=== PATIENT | male | born 1945 | race Two or more races ===

== ENCOUNTER 2023-01-20 12:59 | Inpatient (IN) | payer MEDICAID, OTHER ==
[~2023-01-20] VITALS: Ht 180.3 cm; Wt 86.0 kg
[2023-01-20 14:03] LABS: Basophils # (auto) 0 10 ^3/uL (0-0.2); Basophils % (auto) 0.2 % (0.0-2.0); Eosinophils # (auto) 0.1 10 ^3/uL (0-0.8); Eosinophils % (auto) 0.6 % (0.0-7.0); Hematocrit 43.4 % (41.0-53.0); Hemoglobin 14.8 g/dL (13.5-17.5); Lymphocytes # (auto) 2.1 10 ^3/uL (0.4-5.4); Lymphocytes % (auto) 23.7 % (10.0-50.0); Mean Corpuscular Hemoglobin 32.3 pg (28.0-32.0); Mean Corpuscular Hgb Conc. 34.1 g/dL (32.0-36.0); Mean Corpuscular Volume 94.9 fL (80.0-100.0); Monocytes # (auto) 0.6 10 ^3/uL (0-1.3); Monocytes % (auto) 6.5 % (0.0-12.0); Nucleated Red Blood Cells % 0.1 %; Red Blood Cells 4.58 10^6/uL (4.5-5.90); White Blood Cell 8.7 10^3/uL (4.4-10.8)
[2023-01-20 14:23] LABS: Albumin 2.4 g/dL (3.4-5.0); BUN/Creatinine Ratio 18.8; Calcium 8.3 mg/dL (8.5-10.1)
[2023-01-20 14:35] LABS: Bilirubin, Total 21.8 mg/dL (0.2-1.0); Total Protein 6.5 g/dL (6.4-8.2)
[2023-01-20 14:36] LABS: Urine Bacteria FEW /hpf (None Seen); Urine Blood TRACE /uL (Negative); Urine Hyaline Cast FEW /lpf (0 - 2); Urine Mucus FEW (None Seen); Urine Specific Gravity 1.012 (1.001-1.035); Urine WBC 6 /hpf (0 - 3)
[2023-01-20] MEDS ORDERED: ONDANSETRON HCL 4 MG/2 ML VIAL IV PRN (21:00)
[2023-01-20 22:58] LABS: INR 2.38 (0.9-1.15); Partial Thromboplastin Time 36.6 sec (24.6-33.4)
[2023-01-21] MEDS: SODIUM CHLORIDE 0.9% 1,000 ML IV SCH ×2 (03:45→14:45)
[2023-01-21 06:46] LABS: Hematocrit 37.8 % (41.0-53.0); Hemoglobin 13.5 g/dL (13.5-17.5); Mean Corpuscular Hemoglobin 33.5 pg (28.0-32.0); Mean Corpuscular Hgb Conc. 35.7 g/dL (32.0-36.0); Red Blood Cells 4.03 10^6/uL (4.5-5.90); Red Cell Distribution Width 14.8 % (11.8-14.3); White Blood Cell 6.7 10^3/uL (4.4-10.8)
[2023-01-21 07:04] LABS: Albumin 2.2 g/dL (3.4-5.0); Calcium 7.9 mg/dL (8.5-10.1); Potassium 3.7 mmol/L (3.5-5.1)
[2023-01-21 07:08] LABS: BUN/Creatinine Ratio 18.6; Bilirubin, Total 19.7 mg/dL (0.2-1.0)
[2023-01-21 07:31] LABS: Band Neutrophils % (manual) 0; Basophils % (manual) 0 (0.0-2.0); Blast Cells 0; Metamyelocytes % 0; Myelocytes % 0; Promyelocytes % 0; Reactive Lymphocytes 0
[2023-01-21 09:23] LABS: Eosinophils % (manual) 1 (0-7); Lymphocytes % (manual) 17 (10.0-50.0); Monocytes % (manual) 6 (0-12)
[2023-01-21] MEDS: PANTOPRAZOLE 40 MG TAB PO SCH (10:44)
[2023-01-21 17:17] VITALS: BP 131/99
[2023-01-21 22:00] VITALS: BP 149/91
[2023-01-22 05:00] VITALS: BP 129/86
[2023-01-22] MEDS: SODIUM CHLORIDE 0.9% 1,000 ML IV SCH ×2 (05:13→16:46)
[2023-01-22 08:00] VITALS: BP 145/88
[2023-01-22] MEDS: PANTOPRAZOLE 40 MG TAB PO SCH (10:28)
[2023-01-22 12:00] VITALS: BP 137/83
[2023-01-22 16:00] VITALS: BP 141/95
[2023-01-22 20:00] VITALS: BP 136/83
[2023-01-22 22:00] VITALS: BP 136/83
[2023-01-23] MEDS: SODIUM CHLORIDE 0.9% 1,000 ML IV SCH ×2 (03:58→18:45)
[2023-01-23 05:00] VITALS: BP 120/79
[2023-01-23 08:00] VITALS: BP 103/53
[2023-01-23 08:10] VITALS: BP 103/53
[2023-01-23] MEDS: PANTOPRAZOLE 40 MG TAB PO SCH (10:24)
[2023-01-23 11:47] LABS: Hepatitis A Ab IgM Negative
[2023-01-23 11:48] LABS: Hepatitis B Core IgM Negative; Hepatitis C Antibody Negative (Negative)
[2023-01-23 12:00] VITALS: BP 133/92
[2023-01-23 16:00] VITALS: BP 106/57
[2023-01-23 22:00] VITALS: BP 121/77
[2023-01-24 05:00] VITALS: BP 124/86
[2023-01-24] MEDS: SODIUM CHLORIDE 0.9% 1,000 ML IV SCH ×2 (05:32→17:45)
[2023-01-24 09:00] VITALS: BP 124/79
[2023-01-24] MEDS: PANTOPRAZOLE 40 MG TAB PO SCH (10:47)
[2023-01-24 13:00] VITALS: BP 132/83
[2023-01-24 17:00] VITALS: BP 136/78
[2023-01-24 22:00] VITALS: BP 139/78
[2023-01-25] MEDS: SODIUM CHLORIDE 0.9% 1,000 ML IV SCH ×2 (00:15→13:00)
[2023-01-25 05:00] VITALS: BP 102/61
[2023-01-25 09:00] VITALS: BP 111/62
[2023-01-25] MEDS: PANTOPRAZOLE 40 MG TAB PO SCH (09:01)
[2023-01-25 12:17] LABS: Albumin 2.1 g/dL (3.4-5.0); Basophils # (auto) 0 10 ^3/uL (0-0.2); Basophils % (auto) 0.1 % (0.0-2.0); Calcium 7.7 mg/dL (8.5-10.1); Eosinophils # (auto) 0.1 10 ^3/uL (0-0.8); Eosinophils % (auto) 1.1 % (0.0-7.0); Hematocrit 39.3 % (41.0-53.0); Hemoglobin 13.4 g/dL (13.5-17.5); Lymphocytes # (auto) 1.1 10 ^3/uL (0.4-5.4); Lymphocytes % (auto) 20.6 % (10.0-50.0); Mean Corpuscular Hemoglobin 32.6 pg (28.0-32.0); Mean Corpuscular Hgb Conc. 34.2 g/dL (32.0-36.0); Mean Corpuscular Volume 95.3 fL (80.0-100.0); Monocytes # (auto) 0.4 10 ^3/uL (0-1.3); Monocytes % (auto) 7.6 % (0.0-12.0); Neutrophils # (auto) 3.7 10 ^3/uL (1.6-8.6); Neutrophils % (auto) 70.6 % (37.0-80.0); Potassium 3.8 mmol/L (3.5-5.1); Red Blood Cells 4.12 10^6/uL (4.5-5.90); Red Cell Distribution Width 15.2 % (11.8-14.3); White Blood Cell 5.3 10^3/uL (4.4-10.8)
[2023-01-25 12:20] LABS: BUN/Creatinine Ratio 23.5; Bilirubin, Total 15.2 mg/dL (0.2-1.0); Total Protein 5.9 g/dL (6.4-8.2)
[2023-01-25 13:00] VITALS: BP 154/89
[2023-01-25 17:00] VITALS: BP 136/79
[2023-01-25 22:00] VITALS: BP 127/81
[2023-01-26] MEDS: SODIUM CHLORIDE 0.9% 1,000 ML IV SCH (01:21)
[2023-01-26 05:00] VITALS: BP 119/78
[2023-01-26 06:25] LABS: Basophils # (auto) 0 10 ^3/uL (0-0.2); Basophils % (auto) 0.3 % (0.0-2.0); Eosinophils # (auto) 0.1 10 ^3/uL (0-0.8); Eosinophils % (auto) 1.5 % (0.0-7.0); Hematocrit 36.3 % (41.0-53.0); Hemoglobin 12.8 g/dL (13.5-17.5); Lymphocytes # (auto) 1.2 10 ^3/uL (0.4-5.4); Lymphocytes % (auto) 25.5 % (10.0-50.0); Mean Corpuscular Hgb Conc. 35.3 g/dL (32.0-36.0); Mean Corpuscular Volume 93.4 fL (80.0-100.0); Monocytes # (auto) 0.4 10 ^3/uL (0-1.3); Monocytes % (auto) 8.9 % (0.0-12.0); Neutrophils % (auto) 63.8 % (37.0-80.0); Nucleated Red Blood Cells % 0.1 %; Red Blood Cells 3.89 10^6/uL (4.5-5.90); Red Cell Distribution Width 14.9 % (11.8-14.3); White Blood Cell 4.6 10^3/uL (4.4-10.8)
[2023-01-26 07:14] LABS: Albumin 1.9 g/dL (3.4-5.0); BUN/Creatinine Ratio 23.4; Bilirubin, Total 13.6 mg/dL (0.2-1.0); Calcium 7.3 mg/dL (8.5-10.1); Potassium 3.5 mmol/L (3.5-5.1); Total Protein 5.9 g/dL (6.4-8.2)
[2023-01-26 09:00] VITALS: BP 131/74
[2023-01-26] MEDS: PANTOPRAZOLE 40 MG TAB PO SCH (09:05)
[2023-01-26 11:53] LABS: INR 1.74 (0.9-1.15)
[2023-01-26 12:56] VITALS: BP 128/76
[2023-01-26 17:00] VITALS: BP 148/89
[2023-01-26 20:00] VITALS: BP 126/83
[2023-01-26 22:00] VITALS: BP 126/83
[2023-01-27 05:00] VITALS: BP 115/75
[2023-01-27 06:23] LABS: Basophils # (auto) 0 10 ^3/uL (0-0.2); Basophils % (auto) 0.3 % (0.0-2.0); Eosinophils # (auto) 0.1 10 ^3/uL (0-0.8); Hematocrit 36.2 % (41.0-53.0); Hemoglobin 12.6 g/dL (13.5-17.5); Lymphocytes # (auto) 1.2 10 ^3/uL (0.4-5.4); Lymphocytes % (auto) 20.6 % (10.0-50.0); Mean Corpuscular Hemoglobin 32.8 pg (28.0-32.0); Mean Corpuscular Hgb Conc. 34.7 g/dL (32.0-36.0); Mean Corpuscular Volume 94.4 fL (80.0-100.0); Monocytes # (auto) 0.6 10 ^3/uL (0-1.3); Neutrophils # (auto) 3.8 10 ^3/uL (1.6-8.6); Neutrophils % (auto) 67.1 % (37.0-80.0); Nucleated Red Blood Cells % 0.1 %; Red Blood Cells 3.84 10^6/uL (4.5-5.90); Red Cell Distribution Width 14.5 % (11.8-14.3); White Blood Cell 5.7 10^3/uL (4.4-10.8)
[2023-01-27 06:49] LABS: Albumin 1.8 g/dL (3.4-5.0); BUN/Creatinine Ratio 21.4; Bilirubin, Total 13.1 mg/dL (0.2-1.0); Calcium 7.5 mg/dL (8.5-10.1); Potassium 3.8 mmol/L (3.5-5.1); Total Protein 5.7 g/dL (6.4-8.2)
[2023-01-27 08:28] VITALS: BP 116/73
[2023-01-27] MEDS: PANTOPRAZOLE 40 MG TAB PO SCH (09:02)
[2023-01-27 12:19] VITALS: BP 127/87
[2023-01-27 16:16] VITALS: BP 114/68
[2023-01-27 20:00] VITALS: BP 126/76
[2023-01-27 22:00] VITALS: BP 126/76
[2023-01-28 05:00] VITALS: BP 91/65
[2023-01-28 06:33] LABS: Basophils # (auto) 0 10 ^3/uL (0-0.2); Basophils % (auto) 0.6 % (0.0-2.0); Eosinophils # (auto) 0.1 10 ^3/uL (0-0.8); Eosinophils % (auto) 1.6 % (0.0-7.0); Hematocrit 36.8 % (41.0-53.0); Hemoglobin 12.9 g/dL (13.5-17.5); Lymphocytes # (auto) 1.3 10 ^3/uL (0.4-5.4); Mean Corpuscular Hemoglobin 32.8 pg (28.0-32.0); Mean Corpuscular Hgb Conc. 35.2 g/dL (32.0-36.0); Mean Corpuscular Volume 93.2 fL (80.0-100.0); Monocytes # (auto) 0.5 10 ^3/uL (0-1.3); Monocytes % (auto) 8.2 % (0.0-12.0); Neutrophils # (auto) 3.9 10 ^3/uL (1.6-8.6); Neutrophils % (auto) 67.6 % (37.0-80.0); Red Blood Cells 3.95 10^6/uL (4.5-5.90); Red Cell Distribution Width 14.9 % (11.8-14.3); White Blood Cell 5.7 10^3/uL (4.4-10.8)
[2023-01-28 07:19] LABS: Albumin 1.8 g/dL (3.4-5.0); BUN/Creatinine Ratio 22.1; Bilirubin, Total 14.8 mg/dL (0.2-1.0); Calcium 7.5 mg/dL (8.5-10.1); Potassium 3.7 mmol/L (3.5-5.1)
[2023-01-28 08:30] VITALS: BP 118/66
[2023-01-28] MEDS: PANTOPRAZOLE 40 MG TAB PO SCH (08:58)
[2023-01-28 12:30] VITALS: BP 133/59
[2023-01-28 16:17] VITALS: BP 116/79
[2023-01-28 20:00] VITALS: BP 113/61
[2023-01-28 22:28] VITALS: BP 113/61
[2023-01-29 05:09] VITALS: BP 108/74
[2023-01-29 06:21] LABS: Basophils # (auto) 0 10 ^3/uL (0-0.2); Basophils % (auto) 0.6 % (0.0-2.0); Eosinophils # (auto) 0.1 10 ^3/uL (0-0.8); Eosinophils % (auto) 1.5 % (0.0-7.0); Hematocrit 36.4 % (41.0-53.0); Hemoglobin 12.6 g/dL (13.5-17.5); Lymphocytes # (auto) 1.3 10 ^3/uL (0.4-5.4); Lymphocytes % (auto) 20.4 % (10.0-50.0); Mean Corpuscular Hemoglobin 32.5 pg (28.0-32.0); Mean Corpuscular Hgb Conc. 34.6 g/dL (32.0-36.0); Mean Corpuscular Volume 94.1 fL (80.0-100.0); Monocytes # (auto) 0.5 10 ^3/uL (0-1.3); Monocytes % (auto) 7.3 % (0.0-12.0); Neutrophils # (auto) 4.4 10 ^3/uL (1.6-8.6); Neutrophils % (auto) 70.2 % (37.0-80.0); Nucleated Red Blood Cells % 0.1 %; Red Blood Cells 3.87 10^6/uL (4.5-5.90); Red Cell Distribution Width 14.8 % (11.8-14.3); White Blood Cell 6.3 10^3/uL (4.4-10.8)
[2023-01-29 06:43] LABS: Albumin 1.8 g/dL (3.4-5.0); Calcium 7.5 mg/dL (8.5-10.1); Potassium 3.6 mmol/L (3.5-5.1)
[2023-01-29 06:47] LABS: BUN/Creatinine Ratio 21.7; Bilirubin, Total 15.6 mg/dL (0.2-1.0); Total Protein 6.1 g/dL (6.4-8.2)
[2023-01-29 09:00] VITALS: BP 109/71
[2023-01-29] MEDS: PANTOPRAZOLE 40 MG TAB PO SCH (09:39)
== END 2023-01-29 16:00 | disposition home or self-care (01) ==
LOC: ER 12:59 → OVERFLOW 20:53 → CENTRAL 01-21 16:09
PROVIDERS: ADMIT Nurse Practitioner; ATTEND Internal Medicine Pulmonary Disease
DX: K80.51 Calculus of bile duct without cholangitis or cholecystitis with obstruction (principal); E43 Unspecified severe protein-calorie malnutrition; D68.9 Coagulation defect, unspecified; K72.90 Hepatic failure, unspecified without coma; K57.32 Diverticulitis of large intestine without perforation or abscess without bleeding; N18.31 Chronic kidney disease, stage 3a; Z68.26 Body mass index [BMI] 26.0-26.9, adult; Z20.822 Contact with and (suspected) exposure to COVID-19
CPT/HCPCS: 36415; 74176; 74181; 76705; 80053; 80074; 81001; 82105; 82140; 84484; 85007; 85025; 85027; 85610; 85730; 86301; 87426; 93005; G0378